=== PATIENT | male | born 1990 | race Hispanic/Latino ===

== ENCOUNTER 2018-07-22 09:36 | Day surgery (SDC) | payer BC ==
[2018-07-22 11:04] VITALS: O2SAT 100
[2018-07-22] MEDS ORDERED: Bupivacaine HCl 0.5% PF (30 ml) Inj ONE (11:38)
[2018-07-22] MEDS ORDERED: ceFAZolin 1 gm FROZEN Premix 1 GM/50 ML ML IVPB ONE (11:38)
[2018-07-22] MEDS ORDERED: Propofol 10 mg/ml Inj (20 ML) ONE (11:48)
[2018-07-22] MEDS ORDERED: Midazolam 2 MG/2 ML VIAL ONE (11:48)
[2018-07-22] MEDS ORDERED: Acetaminophen-Codeine 300/30 mg Tab PO PRN (13:41)
[2018-07-22] MEDS ORDERED: HYDROmorphone 0.5 mg/0.5 ml ISec IVP PRN (13:41)
[2018-07-22] MEDS ORDERED: Dexamethasone 4 mg/1 ml IVP PRN (13:41)
[2018-07-22 16:28] VITALS: RESP 16
[2018-07-22 16:46] VITALS: BP 114/74; PULSE 74; TEMP 97.6
--- NOTE | 2018-07-25 10:53 | CARD ---
APPROVED REPORT Date of service: 07/22/2018 EKG Measurement Heart [id number] <Conclusion> Normal sinus rhythm Rightward axis ST elevation, probably due to early repolarization Borderline ECG
--- NOTE | 2018-08-08 07:45 | HP ---
UROLOGY ADMISSION HISTORY AND PHYSICAL This is a repeat of the dictation we had initially. REASON FOR ADMISSION: Left scrotal, left intratesticular mass. HISTORY OF PRESENT ILLNESS: A very pleasant 28-year-old gentleman who recently called me. He had presented to the emergency room about a week before with severe left scrotal pain. It was suspicious that there was a torsion that . He had underlying pain. During that admission to the [facility] emergency room, there was a reading on the ultrasound of an intratesticular mass. Concerns for malignancy, see the report. I had a chance to look at that report and the actual films, and there is definitely a mass noted on that ultrasound. (See below) We repeated the ultrasound several times and noted it. Subsequently, the patient reached out to me. We then met with the patient and we discussed various options. So, this was initially when I met with the patient. On physical exam, I could not appreciate any intratesticular masses. With that report, from the ultrasound from the [facility] which was 07/10/2018 or so, we then arranged for a CT scan. That CT scan was mostly done for evaluation for any lymphadenopathy, for concerns for cancer. At the same time, that was done on 07/14/2018. On that CT scan, I have had a chance to review. A request was made that they evaluate the testicle as well. There is an "enhancing" mass in the left hemiscrotum, and I reviewed that with the radiologist, could not even be positive of intra versus extratesticular. More significantly, there was no lymphadenopathy. We also did labs, tumor markers, which were all within normal limits. We then have been following the patient, so he has an intratesticular mass on an ultrasound. I then repeated the ultrasound immediately on 07/15/2018, and on that finding, again there is a left intratesticular mass, very difficult to characterize. We then discussed various options, got second and third opinions. The concern, of course, is underlying malignancy for the testicle. Of note, the patient also specifically has no history of trauma that he can recall, no recollection of any trauma kicking. In the meantime, he had some vague complaints of abdominal discomfort, vague complaints of poor appetite, nonspecific in nature. We then followed the patient and decided not to operate immediately. We did discuss the idea of a scrotal exploration, which we are going to do today immediately versus observation. We then repeated a third ultrasound which showed the same mass. Difficult to evaluate if it is any improved or not. So now, we have three intratesticular mass ultrasounds. (On an unofficial note, I also have a similar finding. In my office, I did an ultrasound). This is an unofficial read with a similar finding. Therefore, given this situation, I have a very challenging specific situation. See the plans listed below. We will bring him to the operating room today. We are going to an inguinal exploration. We are going to do frozen sections. We are going to do follow evaluation. I have also because of the difficult nature and because we do not want to do an orchiectomy, because it is not a standard clear-cut case of either a definite testicular cancer or not, I have also arranged for another board certified urologist, Dr. Brittney Juarez, to be with me for assistance during this procedure. See the plans listed below. I have explained this to the patient on several occasions in great details. . PAST MEDICAL AND SURGICAL HISTORY: As follows: He has no history of GA, CVA, asthma. Essentially, no major medical conditions. SOCIAL HISTORY: On a social note, he is , he has a baby. He is a student; and he is also studying for his master's in social work. He does not have any specific major travel. He originates from [place]. No smoking. No other major concerns. REVIEW OF SYSTEMS: As mentioned above, no real weight loss, chest pain, or shortness of breath, or like. His appetite complaints are a little bit vague. No other appreciable abnormalities. PHYSICAL EXAMINATION: GENERAL: A well-nourished thin male, in no apparent distress . VITAL SIGNS: Within normal limits. NECK: No cervical, no axillary lymphadenopathy. LUNGS: Clear. HEART: Normal S1 and S2. ABDOMEN: Overall soft, nontender. No masses appreciated. No flank mass. GENITOURINARY: He has a normal male phallus. His both, left and right hemiscrotum are normal, well developed. On his right hemiscrotum, the testicle is well developed and normal. No masses appreciated. Normal vas deferens felt. Similar findings on the left hemiscrotum as well with no definite mass; even knowing where the growth is on the ultrasound, I cannot feel it well. (I want to make a note, besides this physical exam, we also examined him under anesthesia and also as mentioned above, I have a second urologist operating with me and even during the procedure. We can see the separately dictated procedure note, it is really difficult to at best to appreciate an intratesticular mass). NEUROLOGIC: Grossly within normal limits. EXTREMITIES: Not edematous. LABORATORY DATA: Lab values, see the chart for further details but all tumor markers alpha fetoprotein, LDH, HCG are all noted to be within relatively normal limits. No abnormalities appreciated. DIAGNOSES: 1. Initially, left scrotal pain. 2. Left intratesticular mass (not really palpable, but discovered on ultrasound, but duplicated on at least three separate ultrasounds and duplicated on a CT scan). 3. Vague complaints. 4. In a young, otherwise 28-year-old gentleman with no specific medical issue, no history of trauma, no other issues. PLAN: As follows: We discussed options with the patient at great length, after discussions with many options available. I have arranged to have a second urologist , I have arranged to have Dr. Brittney Juarez assist me to this procedure. I have also had the pathology department on alert that we are going to be sending frozen section. The plan for today is as follows. Also in preparation for today is to have the patient's sperm length. The plan for today is an inguinal exploration, we are approaching it if it is a cancer. Under anesthesia, we are going to plan to of the cord and decrease the blood flow. We are going to do an intraoperative ultrasound. We have made arrangements for ultrasound. We are going to do an intraoperative frozen section, one or more if needed, and then, we are going to proceed and see how we do. I have discussed with the patient we may do biopsies, may do repair of testicle, may do biopsy, and do an orchiectomy. There are many different possibilities with the patient, discussed. I specifically discussed if there is any form of malignancy, we are going to most likely recommend an orchiectomy. I have discussed this at length with the patient and with his . We are going to plan to proceed. Further plan for today is as follows: 1. Antibiotic prophylaxis. 2. Inguinal exploration in the left groin. 3. An intraoperative ultrasound and intraoperative frozen section, and then, further plans will follow. Risks and benefits were discussed at length. We will plan to proceed. ADDENDUM: See the operative report. The intraoperative frozen section did not reveal any malignancy. It looks like an organized gross picture, it looks like a hematoma (perhaps of unclear etiology). Perhaps, he had a hematoma without obvious knowledge. Definitely, nothing abnormal in the tissue is detected. See the plans at the end of the surgery at the end of the operative note, but basic plan at this point is to repeat ultrasounds and do a close followup exam. This has been explained to the patient in great detail. Jason Juarez MD
--- NOTE | 2018-08-08 13:25 | OP ---
PROCEDURE DATE: 07/22/2018 UROLOGY OPERATIVE NOTE THIS IS A REPEAT DICTATION. SURGEON: Jason Juarez MD. PREOPERATIVE DIAGNOSIS: Left intratesticular mass, concerns for intratesticular cancer. POSTOPERATIVE DIAGNOSIS: No evidence of testicular cancer. PROCEDURES: Left inguinal exploration, delivery of the testicle, a left intraoperative ultrasound of the testicle, an intraoperative ultrasound of the testicle, frozen section and repair of a left testicle. SURGEON: Jason Juarez MD. BUSINESS ASSISTANT SURGEON: Brittney Juarez MD. (Board certified urologist needed for intraoperative assistance and evaluation for this particular complicated case). ESTIMATED BLOOD LOSS: Less than 10 mL. UROLOGY OPERATIVE FINDINGS: As discussed, as follows: The intraoperative ultrasound reveals a mass that is exactly similar to the findings on the preoperative ultrasound that we have had, this is now ultrasound #4 for the patient. Each one is consistent. The other intraoperative finding is, it is extremely difficult with the ultrasound even with the testicle, not the skin even as a barrier, but the testicle with the ultrasound, it is really difficult to feel this mass, it is extremely small, it looks to be in the end of the day. We have multiple pictures taken and saved what looks like a hematoma, but surprisingly no evidence of trauma. See the below addendum. The operative event and before even the procedure. We did frozen sections intraoperatively, see the body of the report, these are all negative for malignancy, final sections to margin. These were all negative. I also want to mention that we repaired the testicle. The final shape of the testicle was a littler altered from its natural form, but we are able to review it and excellent repair of the tunica around the testicle tissue. The rest of the testicle is difficult, all looks within normal limits. I do also want to say that we gave Marcaine, gently to the cord as well to the skin for his postoperative analgesia. At the termination of the procedure, we had a closed incision. We replaced the testicle in its anatomic position. ADDENDUM: Here, there will be another addendum at the end, but at this point my working diagnosis is that the patient had some kind of trauma unbeknown to him. This caused his pain, and that pain brought him to the emergency room and that caused the findings of an intratesticular mass, which seems to be a hematoma at the end of the day. Given the fact that this is still a very uncommon scenario, especially, in a patient that is not providing any history of drug abuse or any history of seizure activity or any other abnormality findings. History of trauma and to be unaware of this, is a little unusual. Therefore, we are still concerning for a future followup, and is opposed to a mass that led spontaneously to occult hematoma. We definitely don't see one, I have four eyes now looking at it, not just my own eyes, I have the assistance of another board certified urologist which I brought in because this will be impossible to make the decision alone, in either direction, the decision to make an orchiectomy or decision to leave alone without at least a second opinion intraoperatively given his age and overall condition. But at this point, working diagnosis is there is no evidence of malignancy. I explained all this to the patient in detail. Now see the procedure note. As can be detected, this is a patient that we put a tremendous amount of time and effort into. This is a repeat of dictation, but it is still all fresh in my mind. And therefore I am repeating this dictation as I am noticing in medical records, that it is not listed. DESCRIPTION OF PROCEDURE: After obtaining informed consent, the patient placed on the OR table. Routine monitor placed. Timeout was called. We confirmed the patient, positioning. As mentioned, I have arranged for board certified urologist to be a second opinion intraoperatively and to help me to evaluate this patient. Given the difficult nature of this situation, I also explained to the patient the possibility for an orchiectomy. I explained the intraoperative frozen sections. I have explained this directly at length. We prepped the patient in a sterile fashion. We shaved the groin. An incision was made just above the inguinal ring. This carried down to the underlying fascia, we avoid the inguinal nerve. We opened gently, carefully, slowly. We . Now, I can grab the cord, we prepped the whole area. We grabbed the cord, and we gently pushed from below. And we are able to deliver this testicle into the field. We of course had put a wrap around using a Sharlene around the cord so that we don't spread if there is any tumor. We very carefully and gently dissected testicle off the wall, and made sure that we do not buckle up the skin and make sure we do not violate the skin. We now inspected the testicle very closely, I really cannot feel anything well and I insisted it is very difficult. At this point, we get the intraoperative ultrasound. We did this under sterile technique. We took multiple pictures and again the characteristic appearance is exactly similar, and pictures are taken and saved of the ultrasound. It is a mass in the testicle itself, in the inferior portion of testicle. So at this point, where we isolated the mass, we can may be use to palp up the right region. We opened the tunica very carefully, gently. We opened it. Now, we actually see hematoma like in the area with an abnormal underneath the testicle tissue. Specifically, the remainder of the testicle all looks normal except for this one area that looks like if we can open it we get some blood, we took pictures of it, close pictures are taken and then we take biopsy samples and send that to the lab for frozen section. We also sent some final sections, we cleaned it gently. Definitely, all the tissue that is there other than the hematoma looks absolutely normal. Does not look suspicious for any kind of tumor cells, we sent it off anyway for a frozen section and for final section. Once we controlled bleeding, we now began our closure. We closed the testicle very closely, gently, carefully, and we reapproximated the tunica. The actual shape is a little bit off from the natural portion. We inspected, there is no bleeding, it is closed nicely. And we returned the testicle back into the scrotal sac. Being careful, as we slowly evaluated the skin, we turned the skin inside up, made sure there was no bleeding. We did not buckle the skin. We did not violate the skin. We turned the testicle below. We lined it up anatomically. We injected the cord with some Marcaine. We began our closure. We reapproximated the external loops. We examined the fascia. We closed the skin. We injected the skin with some lidocaine. We closed the skin with a Monocryl running subcuticular cosmetic closure. We applied Steri strips. There is no bleeding noted. We applied dry sterile dressing with little pressure on it. The patient tolerated the procedure well without complications. Brought to the recovery room in stable condition. I spoke to the pathologist. No malignancies detected. FINAL DIAGNOSIS: Left intratesticular mass. WORKING DIAGNOSIS: Now is hematoma. The patient tolerated the procedure well without complications. Jason Juarez MD
== END 2018-07-22 16:54 | disposition home or self-care (01) ==
LOC: C.OPSURG 09:36
PROVIDERS: ATTEND Urology
DX: C62.12 Malignant neoplasm of descended left testis (principal); N50.1 Vascular disorders of male genital organs
CPT/HCPCS: 54505; 88305; 88331; 93005; J0690; J2001; J2250; J2405; J2704; J3010